=== PATIENT | male | born 1970 | race African-American/Black ===

== ENCOUNTER 2022-01-24 21:31 | Emergency (ER) | payer OTHER ==
[~2022-01-24] VITALS: Ht 188 cm; Wt 135.3 kg
[2022-01-24 21:32] VITALS: BP 125/85
[2022-01-24] MEDS ORDERED: ASPI-255 PO (21:36)
[2022-01-24 22:27] LABS: BASO % 0.4 % (0.0-1.0); EOS # 0.1 10^3/uL (0.0-0.5); EOS % 1.5 % (0.0-3.0); HEMATOCRIT 44.9 % (42.0-52.0); HEMOGLOBIN 14.9 g/dl (13.5-17.5); LYMPH # 3.1 10^3/uL (1.5-5.0); LYMPH % 32.5 % (24.0-44.0); MEAN CORPUSCULAR HEMOGLOBIN 27.3 pg (27.0-33.0); MEAN CORPUSCULAR HGB CONC 33.2 g/dl (32.0-36.5); MEAN CORPUSCULAR VOLUME 82.2 fl (80.0-96.0); MONO # 0.7 10^3/uL (0.0-0.8); MONO % 7.6 % (2.0-8.0); NEUTROPHILS # 5.6 10^3/uL (1.5-8.5); NEUTROPHILS % 57.7 % (36.0-66.0); PLATELET COUNT, AUTOMATED 266 10^3/uL (150-450); RED BLOOD COUNT 5.46 10^6/uL (4.30-6.10); WHITE BLOOD COUNT 9.6 10^3/uL (4.0-10.0)
[2022-01-24 23:09] LABS: ALBUMIN 3.5 GM/DL (3.2-5.2); BILIRUBIN,DIRECT 0.2 MG/DL (0.0-0.2)
== END 2022-01-24 23:31 | disposition home or self-care (01) ==
LOC: M ED 21:31
DX: R10.32 Left lower quadrant pain (principal); I10 Essential (primary) hypertension; Z87.19 Personal history of other diseases of the digestive system; Z79.82 Long term (current) use of aspirin; Z87.891 Personal history of nicotine dependence

== ENCOUNTER → 2022-08-23 | Outpatient (CLI) | payer OTHER ==
[~2022-08-23] MED LIST: ASPI-255 PO
== END ==
LOC: M SOG 07:55
PROVIDERS: ATTEND Physician Assistant
DX: M25.571 Pain in right ankle and joints of right foot (principal)

== ENCOUNTER → 2023-04-05 | Outpatient (REF) | payer OTHER | LOC: M SMT 17:15 | PROVIDERS: ATTEND Urology | DX: Z30.2 Encounter for sterilization (principal) ==

== ENCOUNTER → 2023-09-26 | Outpatient (CLI) | payer OTHER | LOC: M SOG 09:47 | PROVIDERS: ATTEND Physician Assistant | DX: M25.561 Pain in right knee (principal) ==

== ENCOUNTER → 2023-10-02 | Outpatient (CLI) | payer OTHER | LOC: M SOG 08:04 | PROVIDERS: ATTEND Physician Assistant | DX: M79.644 Pain in right finger(s) (principal); Z53.9 Procedure and treatment not carried out, unspecified reason ==

== ENCOUNTER 2023-10-07 06:06 | Day surgery (SDC) | payer OTHER ==
[~2023-10-07] VITALS: Ht 185.4 cm; Wt 133.4 kg
[2023-10-07] MEDS ORDERED: LIDOCAINE W/EPINEPHRINE 1% 20ML VIAL XX ONE (06:45)
[2023-10-07] MEDS ORDERED: SODIUM BICARBONATE 8.4% INJ 50MEQ 50ML VIAL XX ONE (06:45)
[2023-10-07] MEDS ORDERED: LIDOCAINE 1% MDV 20ML VIAL As Ordered ONE (07:26)
[2023-10-07] MEDS: BACITRACIN OINTMENT 30GM TUBE As Ordered ONE (08:03)
[2023-10-07 08:05] VITALS: BP 133/81; TEMP 97.1; O2SAT 98
[2023-10-07] MEDS ORDERED: LIDOCAINE 1% SDV 30ML VIAL XX ONE (09:00)
[2023-10-07] MEDS ORDERED: LIDOCAINE 1% MDV 20ML VIAL XX ONE (09:00)
== END 2023-10-07 08:15 | disposition home or self-care (01) ==
LOC: M SDC 06:06
PROVIDERS: ATTEND Orthopaedic Surgery Hand Surgery
DX: S60.351A Superficial foreign body of right thumb, initial encounter (principal); W45.8XXA Other foreign body or object entering through skin, initial encounter; X58.XXXA Exposure to other specified factors, initial encounter; Y92.89 Other specified places as the place of occurrence of the external cause; Y93.89 Activity, other specified; Y99.8 Other external cause status; Z87.891 Personal history of nicotine dependence

== ENCOUNTER → 2024-08-04 | Outpatient (CLI) | payer OTHER | LOC: M RAD 14:47 | PROVIDERS: ATTEND Physician Assistant | DX: S69.92XA Unspecified injury of left wrist, hand and finger(s), initial encounter (principal); X58.XXXA Exposure to other specified factors, initial encounter; Y92.9 Unspecified place or not applicable ==